=== PATIENT | male | born 1995 | race Two or more races ===

== ENCOUNTER 2024-09-08 18:14 | Emergency (ER) | payer OTHER ==
[~2024-09-08] VITALS: Ht 177.8 cm; Wt 64.0 kg
[2024-09-08] MEDS ORDERED: IBUprofen 800 MG TABLET PO ONE (20:30)
== END 2024-09-08 21:06 | disposition home or self-care (01) ==
LOC: ER 18:16
DX: M54.89 Other dorsalgia (principal)